=== PATIENT | female | born 1975 | race African-American/Black ===

== ENCOUNTER 2019-01-11 15:43 | Observation (INO) ==
[2019-01-11 16:51] LABS: Basophils # 0.1 10*3/uL (0.0-0.2); Basophils % 0.7 % (0.0-0.8); Eosinophils # 0.1 10*3/uL (0.0-0.87); Eosinophils % 0.9 % (0.00-10.9); Hematocrit 34.8 VOL% (35.7-47.0); Hemoglobin 10.6 GM/DL (12.0-16.0); Immature Granulocytes % 0.3 %; Immature Granulocytes Absolute 0.02 #; Lymphocytes # 3.5 10*3/uL (1.4-4.0); Lymphocytes % 50.4 % (21.3-54.2); Mean Corpuscular HGB Conc 30.5 GM/DL (32-36); Mean Corpuscular Volume 87.9 FL (87-102); Mean Platelet Volume 10.2 FL (9.6-12.0); Monocytes % 7.6 % (1.7-12.7); Neutrophils % 40.1 % (38.7-73.9); Platelet Count 275 T/CUMM (130-400); Red Blood Count 3.96 MC/CUMM (3.8-5.5); Red Cell Distribution Width 13.5 % (9.3-17.3); White Blood Count 6.9 T/CUMM (4-12)
[2019-01-11 17:15] LABS: Apearance,Urine CLOUDY (Clear); Bilirubin,Urine Negative (Negative); Blood, Urine Small mg/dL (Negative); Glucose,Urine (UA) Negative (Negative); Hyaline Casts,Urine 9 /LPF (0-3); Ketones,Urine Negative (Negative); Mucus,Urine Occasional /LPF (Occasional); Nitrite,Urine Negative (Negative); Protein,Urine Negative; Squamous Epithelial Cell,Urine Occasional /HPF (0-10); Urine Color Amber (Yellow); Urine Specific Gravity 1.016 (1.001-1.035); Urine Urobilinogen < 2.0 EU/DL (0.2-1.0)
[2019-01-11] MEDS: ASPIRIN 325 MG TABLET PO STA ×2 (17:27→17:28)
[2019-01-11 17:42] LABS: Bilirubin,Total 0.5 MG/DL (0.2-1.0); Calcium 9.1 MG/DL (8.5-10.1); Total Protein 7.1 G/DL (6.4-8.3)
[2019-01-11 17:43] LABS: Barbiturates Screen,Urine Negative (Negative); Benzodiazepines Screen,Urine Negative (Negative); Cannabinoid Screen,Urine Negative (Negative); Opiate Screen,Urine Positive (Negative); Phencyclidine Screen,Urine Negative (Negative)
[2019-01-11] MEDS ORDERED: POTASSIUM CHLORIDE 20 MEQ TABLET PO STA (17:51)
[2019-01-11] MEDS: ZALEPLON 5 MG CAPSULE PO PRN (20:35)
[2019-01-11] MEDS: SUMAtriptan 6 MG/0.5 ML VIAL SUBCUT PRN (20:36)
[2019-01-11] MEDS: ENOXAPARIN 40 MG/0.4 ML SYRINGE SUBCUT SCH (20:38)
[2019-01-11] MEDS: ONDANSETRON 4 MG/2 ML VIAL IV PRN (22:22)
[2019-01-11] MEDS ORDERED: KETOROLAC 15 MG/1 ML VIAL IV ONE (23:24)
[2019-01-12] MEDS ORDERED: KETOROLAC 15 MG/1 ML VIAL IV ONE (00:21)
[2019-01-12] MEDS: SUMAtriptan 6 MG/0.5 ML VIAL SUBCUT PRN (04:11)
[2019-01-12 04:50] LABS: Calcium 8.8 MG/DL (8.5-10.1); Osmolality,Calculated 282.8 MOS/KG (273-304)
[2019-01-12 04:56] LABS: Risk Ratio 2.8; VLDL CHOLESTEROL 21.6 MG/DL
[2019-01-12] MEDS: OLMESARTAN 20 MG TABLET PO SCH (08:51)
[2019-01-12] MEDS: ASPIRIN EC 325 MG TABLET PO SCH (08:51)
[2019-01-12] MEDS: hydroCHLOROthiazide 12.5 MG CAPSULE PO SCH (08:51)
[2019-01-12] MEDS ORDERED: POTASSIUM CHLORIDE 20 MEQ TABLET PO ONE (09:01)
[2019-01-12] MEDS ORDERED: LORazepam 2 MG/1 ML VIAL IV ONE (15:20)
[2019-01-12] MEDS ORDERED: MAGNESIUM SULF RIDER 2 GM in PREMIX 1 EACH IV PRN (15:38)
[2019-01-12] MEDS ORDERED: ZIPRASIDONE 20 MG/1 ML VIAL IM ONE (18:00)
[2019-01-12] MEDS: ZALEPLON 5 MG CAPSULE PO PRN (21:23)
[2019-01-12] MEDS: PANTOPRAZOLE 40 MG VIAL IV SCH (21:24)
[2019-01-12] MEDS: ENOXAPARIN 40 MG/0.4 ML SYRINGE SUBCUT SCH (21:31)
[2019-01-13 04:57] LABS: Basophils # 0.1 10*3/uL (0.0-0.2); Basophils % 0.7 % (0.0-0.8); Eosinophils # 0.1 10*3/uL (0.0-0.87); Eosinophils % 1.9 % (0.00-10.9); Hematocrit 32.7 VOL% (35.7-47.0); Hemoglobin 10.1 GM/DL (12.0-16.0); Immature Granulocytes % 0.1 %; Immature Granulocytes Absolute 0.01 #; Lymphocytes # 4.7 10*3/uL (1.4-4.0); Lymphocytes % 66.8 % (21.3-54.2); Mean Corpuscular HGB Conc 30.9 GM/DL (32-36); Mean Corpuscular Volume 88.6 FL (87-102); Mean Platelet Volume 10.2 FL (9.6-12.0); Monocytes % 5.2 % (1.7-12.7); Neutrophils % 25.3 % (38.7-73.9); Platelet Count 267 T/CUMM (130-400); Red Blood Count 3.69 MC/CUMM (3.8-5.5); Red Cell Distribution Width 13.5 % (9.3-17.3)
[2019-01-13 05:01] LABS: Calcium 8.9 MG/DL (8.5-10.1)
[2019-01-13 05:02] LABS: Calcium 8.7 MG/DL (8.5-10.1); Osmolality,Calculated 283.1 MOS/KG (273-304)
[2019-01-13 05:48] LABS: Eosinophils 1 % (0-10); Hypochromasia 1+; Lymphocytes 78 % (20-55); Ovalocytes 1+; Platelet Estimate Normal; Segmented Neutrophils 18 % (50-85); Total Cells Counted 100
[2019-01-13] MEDS ORDERED: SODIUM CHLORIDE 0.45% 1,000 ML IV SCH (06:00)
[2019-01-13] MEDS ORDERED: diphenhydrAMINE CAP 25 MG CAPSULE PO ONE (07:00)
[2019-01-13] MEDS ORDERED: DIAZEPAM 5 MG TABLET PO ONE (07:00)
[2019-01-13] MEDS: PANTOPRAZOLE 40 MG VIAL IV SCH ×3 (07:48→21:12)
[2019-01-13] MEDS: OLMESARTAN 20 MG TABLET PO SCH ×2 (07:48→08:39)
[2019-01-13] MEDS: hydroCHLOROthiazide 12.5 MG CAPSULE PO SCH ×2 (07:48→08:40)
[2019-01-13] MEDS: ASPIRIN EC 325 MG TABLET PO SCH ×2 (07:48→08:39)
[2019-01-13] MEDS ORDERED: ASPIRIN CHEW 81 MG TABLET PO ONE ×2 (08:24→08:26)
[2019-01-13] MEDS: ONDANSETRON 4 MG/2 ML VIAL IV PRN (08:28)
[2019-01-13] MEDS ORDERED: NITROGLYCERIN SL 0.4 MG TABLET SL ONE (08:37)
[2019-01-13] MEDS: NITROGLYCERIN SL 0.4 MG TABLET SL PRN ×2 (08:39→08:50)
[2019-01-13] MEDS ORDERED: HYDROmorphone 2 MG/1 ML VIAL IV ONE (09:00)
[2019-01-13] MEDS ORDERED: HEPARIN/NACL 0.9% 2 UNITS/ML 1,000 ML IV ONE (13:02)
[2019-01-13] MEDS ORDERED: MIDAZOLAM 2 MG/2 ML VIAL ONE (13:33)
[2019-01-13] MEDS ORDERED: LIDOCAINE 1%/EPI INJ 20 ML VIAL ONE (13:33)
[2019-01-13] MEDS ORDERED: fentaNYL 100 MCG/2 ML VIAL ONE (13:33)
[2019-01-13] MEDS ORDERED: ONDANSETRON 4 MG/2 ML VIAL ONE (13:38)
[2019-01-13] MEDS ORDERED: chlorproMAZINE INJ 25 MG in SODIUM CHLORIDE 0.9% 100 ML IV ONE (21:00)
[2019-01-13] MEDS ORDERED: PROMETHAZINE 25 MG/1 ML VIAL IM ONE (21:00)
[2019-01-13] MEDS: ENOXAPARIN 40 MG/0.4 ML SYRINGE SUBCUT SCH (21:12)
[2019-01-14 05:22] LABS: Basophils % 0.6 % (0.0-0.8); Eosinophils # 0.1 10*3/uL (0.0-0.87); Eosinophils % 1.4 % (0.00-10.9); Hematocrit 33.7 VOL% (35.7-47.0); Hemoglobin 10.2 GM/DL (12.0-16.0); Immature Granulocytes % 0.3 %; Immature Granulocytes Absolute 0.02 #; Lymphocytes # 3.4 10*3/uL (1.4-4.0); Lymphocytes % 54.1 % (21.3-54.2); Mean Corpuscular HGB Conc 30.3 GM/DL (32-36); Mean Corpuscular Volume 88.5 FL (87-102); Mean Platelet Volume 9.8 FL (9.6-12.0); Monocytes % 5.7 % (1.7-12.7); Neutrophils % 37.9 % (38.7-73.9); Platelet Count 271 T/CUMM (130-400); Red Blood Count 3.81 MC/CUMM (3.8-5.5); Red Cell Distribution Width 13.5 % (9.3-17.3); White Blood Count 6.4 T/CUMM (4-12)
[2019-01-14 05:35] LABS: Calcium 8.6 MG/DL (8.5-10.1)
[2019-01-14 05:56] LABS: Eosinophils 1 % (0-10); Lymphocytes 43 % (20-55); Platelet Estimate Normal; Polychromasia Slight; Segmented Neutrophils 53 % (50-85); Total Cells Counted 100
[2019-01-14] MEDS: POTASSIUM CHLORIDE RIDER 10 MEQ in PREMIX 1 EACH IV PRN ×2 (06:33→11:35)
[2019-01-14] MEDS: ASPIRIN EC 325 MG TABLET PO SCH (11:35)
[2019-01-14] MEDS: OLMESARTAN 20 MG TABLET PO SCH (11:35)
[2019-01-14] MEDS: hydroCHLOROthiazide 12.5 MG CAPSULE PO SCH (11:35)
[2019-01-14] MEDS: PANTOPRAZOLE 40 MG VIAL IV SCH ×2 (11:35→20:40)
[2019-01-14] MEDS ORDERED: ONDANSETRON 4 MG/2 ML VIAL ONE (12:30)
[2019-01-14] MEDS ORDERED: PROPOFOL 200 MG/20 ML VIAL IV ONE (12:30)
[2019-01-14] MEDS ORDERED: LIDOCAINE 100 MG/5 ML SYRINGE ONE (12:30)
[2019-01-14] MEDS ORDERED: ASPIRIN EC 325 MG TABLET PO SCH (12:31)
[2019-01-14] MEDS ORDERED: KETOROLAC 15 MG/1 ML VIAL IV ONE (13:09)
[2019-01-14] MEDS ORDERED: DICLOFENAC 1% GEL 100 GM TUBE TOP PRN (14:34)
[2019-01-14] MEDS ORDERED: HYDROmorphone 2 MG/1 ML VIAL IV ONE (14:39)
[2019-01-14] MEDS: ZALEPLON 5 MG CAPSULE PO PRN (20:40)
[2019-01-14] MEDS: ENOXAPARIN 40 MG/0.4 ML SYRINGE SUBCUT SCH (20:41)
[2019-01-14] MEDS ORDERED: POTASSIUM CHLORIDE 20 MEQ/15 ML UDCUP PER TUBE PRN (20:59)
[2019-01-14] MEDS: PROMETHAZINE 25 MG/1 ML VIAL IM PRN (23:54)
[2019-01-15 04:55] LABS: Calcium 8.5 MG/DL (8.5-10.1); Osmolality,Calculated 280.3 MOS/KG (273-304)
[2019-01-15] MEDS ORDERED: ASPIRIN EC 81 MG TABLET PO SCH (09:00)
[2019-01-15 12:42] VITALS: BP 112/70
[2019-01-15] MEDS: hydroCHLOROthiazide 12.5 MG CAPSULE PO SCH (14:33)
[2019-01-15] MEDS: OLMESARTAN 20 MG TABLET PO SCH (14:33)
[2019-01-15] MEDS: PANTOPRAZOLE 40 MG VIAL IV SCH (14:34)
[2019-01-15] MEDS: PROMETHAZINE 25 MG/1 ML VIAL IM PRN (14:39)
== END 2019-01-15 16:18 | disposition home or self-care (01) ==
LOC: EDBD → EDUNIT# → N.EDINP 15:43 → N.ED 15:43 → N.5E 19:01
PROVIDERS: ADMIT Internal Medicine; ATTEND Internal Medicine
PROC: CLCCHCL (ICD-10-PCS; 2019-01-13 13:45)